=== PATIENT | female | born 1960 | race Two or more races ===

== ENCOUNTER → 2018-05-09 | Outpatient (CLI) | payer OTHER ==
[~2018-05-09] MED LIST: IOVERSOL 350 MG/ML 150 ML VIAL ONE; SODIUM CHLORIDE 0.9% 100 ML ONE
== END | disposition home or self-care (01) ==
LOC: RADMN 08:40
PROVIDERS: ATTEND Hospitalist
DX: N28.89 Other specified disorders of kidney and ureter (principal); K76.0 Fatty (change of) liver, not elsewhere classified; R16.0 Hepatomegaly, not elsewhere classified; Z90.49 Acquired absence of other specified parts of digestive tract
CPT/HCPCS: 74178; J7050; Q9967